=== PATIENT | female | born 1955 | race Caucasian/White ===

== ENCOUNTER 2016-11-03 14:05 | Outpatient (CLI) | payer OTHER ==
--- NOTE | 2016-11-03 15:27 | DIAGNOSTIC IMAGING REPORT ---
PROCEDURE: US ABDOMEN ULTRASOUND-COMPLETE INDICATION: ABN LABS TECHNIQUE: Davis scale and color Doppler sonographic images of the abdomen were obtained without comparison. COMPARISON: Abdominal ultrasound 01/04/2014 and 01/16/2013 FINDINGS: Liver demonstrates increased echogenicity and increased parenchymal texture. The gallbladder contains sludge. The wall is normal thickness measuring 0.9 mm . No pericholecystic fluid or Lam sign. The extrahepatic common duct is chronically mildly dilated measuring 8.7 mm . The pancreas is heterogeneous and diminutive without ductal dilatation or peripancreatic fluid collection. The abdominal aorta is normal in its course and caliber. The retrohepatic inferior vena cava is patent. There is appropriate hepatopetal flow in the portal vein. The right kidney measures 9 cm in length. The left kidney measures 8.2 cm in length. Both kidneys demonstrate normal morphology and cortical thickness without hydronephrosis, cyst, solid mass, or shadowing calculus. Color Doppler imaging demonstrates normal blood flow in each kidney. The spleen is normal in size measuring 8.9 cm in length. There is no perihepatic or perisplenic ascites IMPRESSION: 1. Sludge within the gallbladder. 2. Mild extrahepatic biliary dilatation, but without discrete obstructing lesion. 3. Diminutive heterogeneous pancreas without ductal dilatation. 4. Fatty liver
== END 2016-11-03 23:00 ==
LOC: US SRH 14:05
DX: K76.0 Fatty (change of) liver, not elsewhere classified (principal)